=== PATIENT | female | born 1990 | race Caucasian/White ===

== ENCOUNTER 2016-10-27 10:10 | Emergency (ER) | payer SELFPAY ==
[~2016-10-27] VITALS: Ht 152.4 cm; Wt 86.3 kg
[2016-10-27] MEDS ORDERED: SODIUM CHLORIDE 0.9% 1,000 ML IV ONE (10:31)
[2016-10-27] MEDS ORDERED: ONDANSETRON 2MG/ML, 2ML IVPush ONE (11:00)
[2016-10-27] MEDS ORDERED: MORPHINE SULFATE 4 MG/ML, 1ML IVPush PRN (11:00)
[2016-10-27 11:14] LABS: ASPARTATE AMINO TRANSFERASE 11 U/L (15-37); BLOOD UREA NITROGEN 7 mg/dL (7-18)
[2016-10-27] MEDS ORDERED: MORPHINE SULFATE 4 MG/ML, 1ML ONE (11:21)
[2016-10-27] MEDS ORDERED: ONDANSETRON 2MG/ML, 2ML ONE (11:21)
[2016-10-27 14:13] VITALS: BP 99/52
== END 2016-10-27 15:07 | disposition home or self-care (01) ==
LOC: ED 13:47
DX: O34.81 Maternal care for other abnormalities of pelvic organs, first trimester (principal); N83.209 Unspecified ovarian cyst, unspecified side
CPT/HCPCS: 36415; 76770; 76801; 80053; 81003; 84702; 85025; 96361; 96374; 96375; 99285; J2405; J7030

== ENCOUNTER 2016-11-13 09:13 | Emergency (ER) | payer MEDICAID, OTHER ==
[~2016-11-13] VITALS: Ht 152.4 cm; Wt 85.8 kg
[2016-11-13] MEDS ORDERED: ACETAMINOPHEN 325 MG TABLET PO STA (10:35)
[2016-11-13] MEDS ORDERED: ACETAMINOPHEN 325 MG TABLET ONE (11:53)
[2016-11-13 13:08] VITALS: BP 105/58
== END 2016-11-13 13:10 | disposition home or self-care (01) ==
LOC: ED 10:35
DX: O20.0 Threatened abortion (principal); R10.2 Pelvic and perineal pain; Z3A.01 Less than 8 weeks gestation of pregnancy
CPT/HCPCS: 36415; 76801; 84702; 85025; 85610; 86850; 86900; 87210; 87491; 87591; 87808

== ENCOUNTER 2016-11-20 19:54 | Emergency (ER) | payer MEDICAID ==
[~2016-11-20] VITALS: Ht 154.9 cm; Wt 86.5 kg
[2016-11-20 19:57] VITALS: BP 115/76
[2016-11-20] MEDS ORDERED: FLUORESCEIN OPHTHALMIC 1 MG STRIP ONE (20:09)
[2016-11-20] MEDS ORDERED: PROPARACAINE OPHTH 0.5%, 15ML ONE (20:10)
[2016-11-20] MEDS ORDERED: FLUORESCEIN OPHTHALMIC 1 MG STRIP EACHEYE ONE (20:30)
[2016-11-20] MEDS ORDERED: PROPARACAINE OPHTH 0.5%, 15ML EACHEYE ONE (20:30)
== END 2016-11-20 21:49 | disposition home or self-care (01) ==
LOC: ED 21:06
DX: S05.02XA Injury of conjunctiva and corneal abrasion without foreign body, left eye, initial encounter (principal); B02.33 Zoster keratitis; X58.XXXA Exposure to other specified factors, initial encounter; Y93.89 Activity, other specified; Y92.89 Other specified places as the place of occurrence of the external cause; Y99.8 Other external cause status
CPT/HCPCS: 99283

== ENCOUNTER 2016-12-09 13:33 | Emergency (ER) | payer MEDICAID ==
[~2016-12-09] VITALS: Ht 157.5 cm; Wt 85.6 kg
[2016-12-09 15:15] LABS: BLOOD UREA NITROGEN 7 mg/dL (7-18)
[2016-12-09] MEDS ORDERED: HYDROcodone/APAP 5/325 TABLET ONE (17:42)
[2016-12-09 17:54] VITALS: BP 121/69
[2016-12-09] MEDS ORDERED: HYDROcodone/APAP 5/325 TABLET PO ONE (18:00)
== END 2016-12-09 17:56 | disposition home or self-care (01) ==
LOC: ED 17:37
DX: N30.00 Acute cystitis without hematuria (principal)
CPT/HCPCS: 36415; 76801; 80048; 81001; 82040; 84702; 85025; 87086; 99285

== ENCOUNTER 2017-01-01 22:04 | Emergency (ER) | payer MEDICAID ==
[~2017-01-01] VITALS: Ht 154.9 cm; Wt 86.1 kg
[2017-01-02 00:38] LABS: ASPARTATE AMINO TRANSFERASE 26 U/L (15-37); BLOOD UREA NITROGEN 4 mg/dL (7-18)
[2017-01-02 01:34] VITALS: BP 109/46
== END 2017-01-02 02:14 | disposition home or self-care (01) ==
LOC: ED 23:26
DX: O20.0 Threatened abortion (principal); Z3A.15 15 weeks gestation of pregnancy; N83.209 Unspecified ovarian cyst, unspecified side
CPT/HCPCS: 36415; 76805; 80053; 81003; 85025; 99285

== ENCOUNTER 2017-01-18 07:19 | Emergency (ER) | payer MEDICAID ==
[~2017-01-18] VITALS: Ht 154.9 cm; Wt 87.8 kg
[2017-01-18 07:20] VITALS: BP 112/72
== END 2017-01-18 09:14 | disposition home or self-care (01) ==
LOC: ED 09:00
DX: O36.8120 Decreased fetal movements, second trimester, not applicable or unspecified (principal); Z3A.17 17 weeks gestation of pregnancy
CPT/HCPCS: 99284

== ENCOUNTER 2017-03-08 12:32 | Inpatient (IN) | payer MEDICAID ==
[~2017-03-08] VITALS: Ht 154.9 cm; Wt 89.5 kg
[2017-03-08] MEDS ORDERED: SODIUM CHLORIDE 0.9% 1,000 ML IV ONE (13:38)
[2017-03-08] MEDS ORDERED: MORPHINE SULFATE 4 MG/ML, 1ML ONE (13:49)
[2017-03-08] MEDS ORDERED: ONDANSETRON 2MG/ML, 2ML ONE (13:50)
[2017-03-08] MEDS ORDERED: SODIUM CHLORIDE 0.9% 1,000ML IVBOLUS ONE (14:00)
[2017-03-08] MEDS ORDERED: MORPHINE SULFATE 4 MG/ML, 1ML IVPush PRN (14:00)
[2017-03-08] MEDS ORDERED: ONDANSETRON 2MG/ML, 2ML IVPush ONE (14:00)
[2017-03-08 14:25] LABS: HEMATOCRIT 34.1 % (34.6-47.8); HEMOGLOBIN 11.1 g/dL (11.7-16.4); WHITE BLOOD COUNT 10.5 x10^3/uL (3.4-10)
[2017-03-08 14:33] LABS: BLOOD UREA NITROGEN 5 mg/dL (7-18)
[2017-03-08 14:38] LABS: ASPARTATE AMINO TRANSFERASE 11 U/L (15-37)
[2017-03-08] MEDS ORDERED: ACETAMINOPHEN 500 MG TABLET PO ONE (18:00)
[2017-03-08] MEDS ORDERED: PROMETHAZINE 25 MG/ML, 1ML ONE (18:17)
[2017-03-08] MEDS ORDERED: ACETAMINOPHEN 325 MG TABLET ONE (18:17)
[2017-03-08] MEDS ORDERED: PROMETHAZINE 25 MG/ML, 1ML IM ONE (18:30)
[2017-03-08] MEDS ORDERED: BISACODYL 10 MG SUPP PR PRN (20:00)
[2017-03-08] MEDS ORDERED: ONDANSETRON 2MG/ML, 2ML IVPush PRN (20:00)
[2017-03-08] MEDS ORDERED: METOCLOPRAMIDE 5 MG/ML, 2ML IVPush ONE (20:00)
[2017-03-08] MEDS ORDERED: DIPHENHYDRAMINE 50 MG/ML, 1ML IVPush ONE (20:00)
[2017-03-08] MEDS ORDERED: POLYETHYLENE GLYCOL 17 GM PACKET PO PRN (20:00)
[2017-03-08 20:30] VITALS: BP 102/69
[2017-03-08] MEDS ORDERED: SODIUM CHLORIDE FLUSH 10ML SYR IVF SCH (21:00)
[2017-03-09 04:52] VITALS: BP 95/65
[2017-03-09] MEDS: ACETAMINOPHEN 325 MG TABLET PO PRN ×2 (04:56→08:41)
[2017-03-09 05:51] LABS: HEMATOCRIT 29.5 % (34.6-47.8); HEMOGLOBIN 9.8 g/dL (11.7-16.4); WHITE BLOOD COUNT 10.5 x10^3/uL (3.4-10)
[2017-03-09 06:01] LABS: ASPARTATE AMINO TRANSFERASE 12 U/L (15-37); BLOOD UREA NITROGEN 6 mg/dL (7-18)
[2017-03-09 08:19] VITALS: BP 104/83
[2017-03-09] MEDS ORDERED: PRENATAL VIT/IRON/FA 1 EACH TABLET PO SCH (09:00)
[2017-03-09] MEDS ORDERED: PREN1TAB14 PO (13:10)
== END 2017-03-09 14:56 | disposition home or self-care (01) | DRG 781 ==
LOC: ED 13:48 → EDIP 18:37 → 4WST 20:25 → DCLOUNGE 03-09 14:30
PROVIDERS: ADMIT Family Medicine; ATTEND Hospitalist
DX: O99.352 Diseases of the nervous system complicating pregnancy, second trimester (principal); E43 Unspecified severe protein-calorie malnutrition; G81.90 Hemiplegia, unspecified affecting unspecified side; O25.12 Malnutrition in pregnancy, second trimester; O99.012 Anemia complicating pregnancy, second trimester; O26.892 Other specified pregnancy related conditions, second trimester; H53.149 Visual discomfort, unspecified; G43.001 Migraine without aura, not intractable, with status migrainosus; O99.282 Endocrine, nutritional and metabolic diseases complicating pregnancy, second trimester; E86.0 Dehydration; D64.9 Anemia, unspecified; Z3A.24 24 weeks gestation of pregnancy; Z68.37 Body mass index [BMI] 37.0-37.9, adult
CPT/HCPCS: 36415; 70450; 70551; 80053; 81001; 83690; 85025; 87086; 93005; 96361; 96372; 96374; 96375; J2405; J2550; J1200; J2765; J7030

== ENCOUNTER 2017-03-25 07:19 | Outpatient (CLI) | payer MEDICAID ==
[~2017-03-25] VITALS: Ht 154.9 cm; Wt 90.3 kg
[~2017-03-25 07:19] MED LIST: PREN1TAB14 PO
[2017-03-25 08:34] VITALS: BP 113/57
[2017-03-25 08:58] LABS: PATH.CAST-FLAG NOT PRESENT; SPERM-FLAG NOT PRESENT; SRC-FLAG NOT PRESENT; XTAL-FLAG NOT PRESENT; YLC-FLAG NOT PRESENT
[2017-03-25] MEDS ORDERED: NITROFURANTOIN (MACROBID) 100 MG CAPSULE ONE (10:00)
[2017-03-25] MEDS ORDERED: NITROFURANTOIN (MACROBID) 100 MG CAPSULE PO ONE (10:00)
== END 2017-03-25 11:15 | disposition home or self-care (01) ==
LOC: LDOP 07:19
PROVIDERS: ATTEND Student in an Organized Health Care Education/Training Program
DX: O26.892 Other specified pregnancy related conditions, second trimester (principal); O32.1XX0 Maternal care for breech presentation, not applicable or unspecified; O60.02 Preterm labor without delivery, second trimester; R10.9 Unspecified abdominal pain; M54.5 Low back pain; Z3A.25 25 weeks gestation of pregnancy
CPT/HCPCS: 36415; 59025; 76815; 81001; 82731; 87081; 87086; 87210; 87491; 87591; 87808; 89060; 99201; 99211; G0463; Q0114

== ENCOUNTER 2020-01-09 08:25 | Emergency (ER) | payer SELFPAY ==
[~2020-01-09] VITALS: Ht 165.1 cm; Wt 96.4 kg
[2020-01-09] MEDS ORDERED: ACET325T14 PO (08:39)
[2020-01-09 09:57] LABS: BASOPHILS # (AUTO) 0.02 x10^3/uL (0-0.1); BASOPHILS % (AUTO) 0 % (0-1); EOSINOPHILS # (AUTO) 0.13 x10^3/uL (0-0.4); EOSINOPHILS % (AUTO) 1 % (1-7); LYMPHOCYTES # (AUTO) 2.65 x10^3/uL (1-3.4); LYMPHOCYTES % (AUTO) 28 % (22-44); MD NO; MEAN CORPUSCULAR HEMOGLOBIN 28.2 pg (27.0-34.8); MEAN CORPUSCULAR HGB CONC 32.4 g/dL (32.4-35.8); MEAN PLATELET VOLUME 9.5 fL (7.4-10.4); MONOCYTES # (AUTO) 0.47 x10^3/uL (0.2-0.8); MONOCYTES % (AUTO) 5 % (2-9); NEUTROPHILS # (AUTO) 6.23 x10^3/uL (1.8-6.8); NEUTROPHILS % (AUTO) 66 % (42-75); PLATELET COUNT 239 x10^3/uL (130-400); RED BLOOD COUNT 4.62 x10^6/uL (3.82-5.3); RED CELL DISTRIBUTION WIDTH 13.6 % (9.6-15.2)
[2020-01-09 10:05] VITALS: BP 97/57
--- NOTE | 2020-01-09 10:05 | NUR ---
TASK RN: PT RESTING ON GURNEY. NADN. GUTIERREZ.
[2020-01-09 10:06] LABS: ALANINE AMINOTRANSFERASE 30 U/L (12-78); ALBUMIN 3.4 g/dL (3.4-5.0); ANION GAP 6 mmol/L (5-15); CALCIUM 8.9 mg/dL (8.5-10.1); CHLORIDE 109 mmol/L (98-107); CREATININE 0.61 mg/dL (0.55-1.02)
[2020-01-09 10:10] LABS: ALKALINE PHOSPHATASE 102 U/L (45-117); BILIRUBIN,TOTAL 0.2 mg/dL (0.2-1.0); TOTAL PROTEIN 7.7 g/dL (6.4-8.2)
[2020-01-09 10:22] LABS: MICROSCOPIC NOT IND
--- NOTE | 2020-01-09 11:26 | NUR ---
Patient given discharge instructions and they have confirmed that they understand the instructions. Patient ambulatory with steady gait.
== END 2020-01-09 11:27 | disposition home or self-care (01) ==
LOC: ED 09:44
DX: R10.2 Pelvic and perineal pain (principal); G89.29 Other chronic pain; R51 Headache
CPT/HCPCS: 36415; 76830; 80053; 81003; 84703; 85025; 99284